=== PATIENT | male | born 1990 | race Caucasian/White ===

== ENCOUNTER 2019-11-19 13:30 | Emergency (ER) | payer OTHER ==
[2019-11-19 13:36] VITALS: BP 143/82
[2019-11-19] MEDS ORDERED: TETRACAINE HCL 0.5% OPH SOLN 4 ML OU ONE (14:05)
--- NOTE | 2019-11-19 14:07 | ER Document Report ---
ED Medical Screen (RME) - General Chief Complaint: Redness of Eye Stated Complaint: REDNESS OF EYE Time Seen by Provider: 11/19/19 14:02 Mode of Arrival: Ambulatory Information source: Patient Notes: HPI; 29 y/o male presents to the emergency room complaining of foreign body sensation to his left eye that started today. Patient does wear contacts denies any acute trauma or injury. However he states like he feels her something in his eye unsure if he may have got something in his eye during the week at work. PE: Alert and oriented x3. Left sclera injected. Lungs: Clear to auscultation without rales, rhonchi, wheezes. Heart: Regular rate and rhythm without murmurs, rubs, gallops. Unable to do full eye exam in triage. I have greeted and performed a rapid initial assessment of this patient. A comprehensive ED assessment and evaluation of the patient, analysis of test results and completion of the medical decision making process will be conducted by additional ED providers. I have specifically instructed the patient or family members with the patient to immediately return to any nursing staff should anything change in the patient's condition or with their chief complaint. - Related Data Allergies/Adverse Reactions: No Known Allergies Allergy (Verified 11/19/19 14:01) Physical Exam - Vital signs Vitals: Temp Pulse Resp BP Pulse Ox 98.1 F 92 16 143/82 H 100 11/19/19 13:35 11/19/19 13:35 11/19/19 13:35 11/19/19 13:35 11/19/19 13:35 Course - Vital Signs Vital signs: Temp Pulse Resp BP Pulse Ox 98.1 F 92 16 143/82 H 100 11/19/19 13:35 11/19/19 13:35 11/19/19 13:35 11/19/19 13:35 11/19/19 13:35
[2019-11-19] MEDS ORDERED: POLYMYXIN B SULFATE/TMP OPH SOLN (10 ML/ER DISP) OS ONE (16:33)
--- NOTE | 2019-11-19 16:35 | ER Document Report ---
HPI - HPI Time Seen by Provider: 11/19/19 14:02 Pain Level: 2 Context: Patient is a 29-year-old male who presents the emergency department with a chief complaint of left eye pain. Patient states that he feels that he may have gotten something in his eye. Patient wears contact lenses. States that he works in construction and he is not sure if he got something in his eye. Patient has been rubbing his eye. - ROS Systems Reviewed and Negative: Yes All other systems reviewed and negative - EENT EENT: REPORTS: Eye problems - left eye - REPRODUCTIVE Reproductive: DENIES: : - DERM Skin Color: Normal Skin Problems: None Past Medical History - General Information source: Patient - Social History Smoking Status: Never Smoker Chew tobacco use (# tins/day): No Frequency of alcohol use: Occasional Drug Abuse: None Family History: Reviewed & Not Pertinent Patient has homicidal ideation: No Vertical Provider Document - CONSTITUTIONAL Agree With Documented VS: Yes Exam Limitations: No Limitations General Appearance: No Apparent Distress - RESPIRATORY Respiratory: No Respiratory Distress - CARDIOVASCULAR Cardiovascular: Regular Rate Pulses: Normal: Radial - MUSCULOSKELETAL/EXTREMETIES Musculoskeletal/Extremeties: FROM - NEURO Level of Consciousness: Awake, Alert, Appropriate - DERM Integumentary: Warm, Dry, No Rash Course - Re-evaluation Re-evalutation: 11/19/19 23:31 Exam consistent with a corneal abrasion. Negative Adali sign. No globe rupture noted. Patient will be started on ketorolac and Polytrim eyedrops. Patient is visiting from [place]. He will follow-up with ophthalmology when he returns home. Follow-up precautions were given. Verbal discharge instructions were given to the patient. They verbalized understanding. They are stable for discharge. - Vital Signs Vital signs: Temp Pulse Resp BP Pulse Ox 98.1 F 92 16 143/82 H 100 11/19/19 14:02 11/19/19 13:35 11/19/19 13:35 11/19/19 13:35 11/19/19 13:35 Procedures - Eye Procedure Left Fluorescein applied: Left Antibiotic Oinment/Drps Admin: Right eye Slit lamp used: Yes Eyes picture: 1 - corneal abrasian Discharge - Discharge Clinical Impression: Corneal abrasion Qualifiers: Encounter type: initial encounter Laterality: left Qualified Code(s): S05.02XA - Injury of conjunctiva and corneal abrasion without foreign body, left eye, initial encounter Condition: Stable Disposition: HOME, SELF-CARE Instructions: Corneal Abrasion ([facility]) Additional Instructions: You have a corneal abrasion. This should improve in the next several days. You should apply the eye drops to the affected eye 4 times daily. Follow-up with your eye doctor at your earliest ability. Return if you have decreased vision, worsening pain, increased drainage from the eye, you notice redness or puffiness around the eye, you develop a fever greater than 101F, or you have any other symptoms that are concerning to you. Prescriptions: Ketorolac Tromethamine 5 ml OP ASDIR PRN #1 bottle PRN Reason:
== END 2019-11-19 16:35 | disposition home or self-care (01) ==
LOC: ER 13:30
DX: S05.02XA Injury of conjunctiva and corneal abrasion without foreign body, left eye, initial encounter (principal); H57.12 Ocular pain, left eye; X58.XXXA Exposure to other specified factors, initial encounter
CPT/HCPCS: 99282; J3490